=== PATIENT | male | born 1935 | race Caucasian/White ===

== ENCOUNTER 2024-02-09 13:00 | Outpatient (CLI) | payer MEDICARE, BC, SELFPAY | END 2024-02-09 13:01 | disposition home or self-care (01) | LOC: MRI 13:01 | PROVIDERS: Visit Provider Internal Medicine | DX: C61 Malignant neoplasm of prostate (principal) | CPT/HCPCS: 72195 ==

== ENCOUNTER 2025-01-30 15:38 | Outpatient (CLI) | payer MEDICARE, BC, SELFPAY | END 2025-01-30 15:39 | disposition home or self-care (01) | PROVIDERS: PCP Internal Medicine; Visit Provider Internal Medicine | DX: E78.5 Hyperlipidemia, unspecified (principal); I10 Essential (primary) hypertension; Z12.5 Encounter for screening for malignant neoplasm of prostate | CPT/HCPCS: 80053; G0103 ==